=== PATIENT | female | born 1990 | race African-American/Black ===

== ENCOUNTER 2021-12-19 09:21 | Emergency (ER) | payer OTHER ==
[~2021-12-19] VITALS: Ht 172.7 cm; Wt 75.3 kg
--- NOTE | 2021-12-19 09:35 | NUR ---
Received pt 31 yrs female walking in to ED c/o lower abdominal pain for 2 days seen in [facility] NOT UTI seended to ED r/o appendisitis
[2021-12-19] MEDS ORDERED: IV NS 0.9% 1,000 ML BAG IV ONE (10:30)
--- NOTE | 2021-12-19 10:30 | NUR ---
INSERTED ango catheter g 20 on [address] ac blood drow and sent to lab
--- NOTE | 2021-12-19 10:40 | NUR ---
PT refused pain mediction when came in
[2021-12-19 10:49] LABS: BASOPHILS % (AUTO) 0.5 % (0.0-2.0); EOSINOPHILS % (AUTO) 2.1 % (0.0-6.0); HEMATOCRIT 38 % (33-45); HEMOGLOBIN 12.6 g/dL (11.5-14.8); LYMPHOCYTES # (AUTO) 2.4 K/uL (0.8-4.8); LYMPHOCYTES % (AUTO) 35.9 % (20.0-44.0); MEAN CORPUSCULAR HGB CONC 34 g/dl (31.0-36.0); MEAN CORPUSCULAR VOLUME 97 fL (82-100); MONOCYTES # (AUTO) 0.4 K/uL (0.1-1.30); MONOCYTES % (AUTO) 5.4 % (2.0-12.0); NEUTROPHILS # (AUTO) 3.7 K/uL (1.8-8.9); NEUTROPHILS % (AUTO) 56.1 % (43.0-81.0); PLATELET COUNT (AUTO) 203 K/uL (150-450); RED BLOOD CELL COUNT(AUTO) 3.89 MIL/uL (4.0-5.2); WHITE BLOOD COUNT (AUTO) 6.7 K/uL (4.3-11.0)
[2021-12-19 11:12] LABS: CALCIUM, SERUM 8.8 mg/dL (8.5-10.1); POTASSIUM 3.8 mmol/L (3.5-5.1)
[2021-12-19 11:16] LABS: ALBUMIN 3.6 g/dL (3.4-5.0); BILIRUBIN,DIRECT 0.1 mg/dL (0.0-0.2); BILIRUBIN,TOTAL 0.3 mg/dL (0.2-1.0); TOTAL PROTEIN, SERUM 7.5 g/dL (6.4-8.2)
--- NOTE | 2021-12-19 11:25 | NUR ---
UA SENT TO LAB
[2021-12-19 11:39] LABS: BILIRUBIN,URINE NEGATIVE (NEGATIVE); COLOR,URINE YELLOW (YELLOW); LEUKOCYTE ESTERASE ,URINE NEGATIVE (NEGATIVE); NITRITE, URINE NEGATIVE (NEGATIVE); PROTEIN,URINE NEGATIVE (NEGATIVE); UGLUCOSE NEGATIVE (NEGATIVE); UROBILINOGEN,URINE 0.2 EU/dL (0.2)
--- NOTE | 2021-12-19 12:53 | NUR ---
TO CT SCAN OF ABDOMIN VIA [facility]RI[facility]
--- NOTE | 2021-12-19 13:00 | NUR ---
no complain about pain wating for ct result and lab result
--- NOTE | 2021-12-19 13:15 | NUR ---
PT VERBLY [facility] [place] AND DR DR. CHU
--- NOTE | 2021-12-19 13:20 | NUR ---
AY BED SIDE Spooking with pt about lab result
--- NOTE | 2021-12-19 13:25 | NUR ---
IV removed. Catheter intact and site benign. Pressure and 4x4 applied to site. No bleeding noted.
--- NOTE | 2021-12-19 13:39 | NUR ---
Patient discharged to home in stable condition. Written and verbal after care instructions given. Patient verbalizes understanding of instruction.
[2021-12-19 13:41] VITALS: BP 107/65
[2021-12-19] MEDS ORDERED: IBUP-1955 PO (13:45)
[2021-12-19] MEDS ORDERED: HYDR-3972 PO (13:45)
== END 2021-12-19 13:50 | disposition home or self-care (01) ==
LOC: ER 09:26
DX: R10.31 Right lower quadrant pain (principal); Z60.2 Problems related to living alone; Z79.899 Other long term (current) drug therapy
CPT/HCPCS: 99285; 74176; 96360; 85025; 80048; 80076; 84703; 81003; 36415; J7030